=== PATIENT | female | born 1985 | race Asian ===

== ENCOUNTER 2024-11-05 07:55 | Emergency (ER) | payer OTHER ==
[~2024-11-05] VITALS: Ht 170.2 cm; Wt 57.0 kg
[2024-11-05 08:59] LABS: BASOPHILS % 0.4 % (0.0-2.0); EOSINOPHILS % 0.3 % (0.0-5.0); HEMATOCRIT. 39.9 % (36.0-48.0); HEMOGLOBIN. 13.2 g/dL (12.0-16.0); LYMPHOCYTES % 20.5 % (20.0-50.0); MEAN PLATELET VOLUME 9.1 fl (7.4-10.4); MONOCYTES % 5.6 % (2.0-8.0); NEUTROPHILS % 73.2 % (40.0-76.0); PLATELET 236 x1000/uL (130-400); RED BLOOD CELL COUNT 4.28 mill/uL (4.2-5.4); RED CELL DISTRIBUTION WIDTH 12.7 % (11.6-14.6)
[2024-11-05 09:10] LABS: CREATININE 0.7 mg/dL (0.6-1.0)
[2024-11-05 09:11] LABS: TROPONIN I HIGH SENSITIVITY < 4 ng/L (3.0-34); UREA NITROGEN BLOOD 8 mg/dL (9-23)
[2024-11-05 09:12] LABS: ASPARTATE AMINOTRANSFERASE 19 IU/L (<34); BILIRUBIN DIRECT 0.2 mg/dL (<=3.0); INR 1.0; PHOSPHORUS 2.2 mg/dL (2.5-4.9)
[2024-11-05 09:13] LABS: BILIRUBIN TOTAL 1.2 mg/dL (0.1-1.0); HCG SCREEN NEGATIVE; PROTEIN TOTAL 7.7 g/dL (6.0-8.3)
[2024-11-05 09:23] LABS: CLARITY URINE CLEAR (CLEAR); COLOR URINE YELLOW (YELLOW); GLUCOSE URINE NEGATIVE (NEGATIVE); KETONES URINE 1+ (NEGATIVE); LEUKOCYTE ESTERASE URINE NEGATIVE (NEGATIVE); NITRITE URINE NEGATIVE (NEGATIVE); OCCULT BLOOD URINE NEGATIVE (NEGATIVE); PH URINE 7.0 (4.5-8.0); PROTEIN URINE NEGATIVE (NEGATIVE); SPECIFIC GRAVITY URINE 1.012 (1.005-1.030); UROBILINOGEN URINE 0.2 E.U./dL (0.2-1.0)
[2024-11-05] MEDS: POTASSIUM-SODIUM PHOSPHATE POWDER PACKET PO STA (09:43)
[2024-11-05] MEDS: POTASSIUM CHLORIDE 20MEQ TABLET SR PO ONE (09:43)
[2024-11-05] MEDS: POTASSIUM CHLORIDE 20MEQ TABLET SR PO NR (10:04)
[2024-11-05 10:22] VITALS: BP 102/64; PULSE 77; RESP 20; TEMP 36.8; O2SAT 99
== END 2024-11-05 10:26 | disposition home or self-care (01) ==
LOC: ER 07:55
DX: R20.2 Paresthesia of skin (principal); E83.39 Other disorders of phosphorus metabolism; E87.6 Hypokalemia; I34.0 Nonrheumatic mitral (valve) insufficiency; Z98.890 Other specified postprocedural states
CPT/HCPCS: 36415; 71045; 80048; 80076; 81003; 83735; 83880; 84100; 84484; 84703; 85025; 93005; 93970; 99285